=== PATIENT | female | born 1935 | race Caucasian/White ===

== ENCOUNTER 2019-05-23 07:06 | Emergency (ER) | payer MEDICARE, BC ==
[~2019-05-23] VITALS: Ht 154.9 cm; Wt 75.9 kg
[2019-05-23] MEDS ORDERED: acetaminophen 325mg tablet PO ONE (08:10)
[2019-05-23] MEDS ORDERED: morphine 10mg/ml inj. IM ONE (08:10)
[2019-05-23] MEDS ORDERED: HYDR-4383 PO (09:15)
[2019-05-23 09:26] VITALS: BP 147/83
== END 2019-05-23 09:27 | disposition home or self-care (01) ==
LOC: ER 07:07
DX: S13.4XXA Sprain of ligaments of cervical spine, initial encounter (principal); S80.12XA Contusion of left lower leg, initial encounter; I10 Essential (primary) hypertension; M19.90 Unspecified osteoarthritis, unspecified site; Z88.1 Allergy status to other antibiotic agents; V49.88XA Car occupant (driver) (passenger) injured in other specified transport accidents, initial encounter; Y93.89 Activity, other specified; Y92.413 State road as the place of occurrence of the external cause; Y99.9 Unspecified external cause status
CPT/HCPCS: 72125; 73590; 96372; 99284; J2270